=== PATIENT | female | born 2005 | race Caucasian/White ===

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

== ENCOUNTER 2024-03-28 12:43 | Observation (INO) | payer OTHER ==
--- NOTE | 2024-03-28 13:31 | ED ---
Nausea/Vomiting/Diarrhea HPI - General Source: patient, family, RN notes reviewed Mode of arrival: ambulatory Limitations: no limitations <Mahsa Valdez - Last Filed: 03/28/24 13:29> <Tono Raza - Last Filed: 03/28/24 19:33> - General Chief complaint: Nausea/Vomiting/Diarrhea Stated complaint: N/V/D Time Seen by Provider: 03/28/24 13:00 - History of Present Illness Initial comments: Clifford hollingsworth is a 18-year-old female presenting to the emergency department from urgent care with her mother for complaint of nausea, abdominal pain, diarrhea over the past day. Patient states that she is originally constipated now is having diarrhea and nausea. Denies previous surgical abdominal history. Denies fevers, chills, urinary complaints (Mahsa Valdez) Dictation was produced using [employer] dictation software. please excuse any grammatical, word or spelling errors. Chief Complaint: 18-year-old female with nausea, vomiting abdominal pain and diarrhea x 1 day History of Present Illness: 18-year-old female with no significant comorbidities presents emergency department with 1 day of abdominal pain, nausea vomiting and diarrhea. States that her diarrhea appeared to be bloody. She states that she also had nonbilious nonbloody emesis. Denies any fevers chills or night sweats. She complains of lower abdominal pain. Denies any surgical abdominal history. Denies any recent travel. Denies any fecal oral contact. Denies any consumption of suspect foods. The ROS documented in this emergency department record has been reviewed and confirmed by me. Those systems with pertinent positive or negative responses have been documented in the HPI. All other systems are other negative and/or noncontributory. (Tono Raza) - Related Data Home Medications Medication Instructions Recorded Confirmed Cetirizine HCl [Zyrtec] 10 mg PO HS 03/28/24 03/28/24 FLUoxetine HCL [Sarafem] 30 mg PO HS 03/28/24 03/28/24 Allergies Allergy/AdvReac Type Severity Reaction Status Date / Time sulfamethoxazole Allergy Rash/Hives Verified 03/28/24 19:01 [From ] trimethoprim [From ] Allergy Rash/Hives Verified 03/28/24 19:01 Review of Systems ROS Other: All systems not noted in ROS Statement are negative. <Mahsa Valdez - Last Filed: 03/28/24 13:29> ROS Other: All systems not noted in ROS Statement are negative. <Tono Raza - Last Filed: 03/28/24 19:33> ROS Statement: Those systems with pertinent positive or pertinent negative responses have been documented in the HPI. Past Medical History Past Medical History: No Reported History History of Any Multi-Drug Resistant Organisms: None Reported Past Surgical History: No Surgical Hx Reported Past Psychological History: No Psychological Hx Reported Smoking Status: Current every day smoker Past Alcohol Use History: Occasional Past Drug Use History: Marijuana <Mahsa Valdez - Last Filed: 03/28/24 13:29> General Exam Limitations: no limitations <Mahsa Valdez - Last Filed: 03/28/24 13:29> <Tono Raza - Last Filed: 03/28/24 19:33> - General Exam Comments Initial Comments: Visual Physical Exam Vital signs reviewed General: Well-appearing, nontoxic, no acute distress. Head: Normocephalic, atraumatic Eyes: PERRLA, EOMI ENT: Airway patent Chest: Nonlabored breathing Skin: No visual rash, normal skin tone Neuro: Alert and oriented 3 Musculoskeletal: No gross abnormalities (Mahsa Valdez) PHYSICAL EXAM: General Impression: Alert and oriented x3, not in acute distress HEENT: Normocephalic atraumatic, extra-ocular movements intact, pupils equal and reactive to light bilaterally, mucous membranes moist. Cardiovascular: Heart regular rate and rhythm Chest: Able to complete full sentences, no retractions, no tachypnea Abdomen: abdomen soft, diffuse palpatory tenderness worse in the lower abdomen non-distended, no organomegaly Musculoskeletal: Pulses present and equal in all extremities, no peripheral edema Motor: no focal deficits noted Neurological: CN II-XII grossly intact, no focal motor or sensory deficits noted Skin: Intact with no visualized rashes Psych: Normal affect and mood (Tono Raza) Course Vital Signs 03/28/24 03/28/24 12:45 15:42 Temperature 98.1 F Pulse Rate 78 55 L Respiratory 20 19 Rate Blood Pressure 125/77 109/68 O2 Sat by Pulse 97 100 Oximetry Medical Decision Making <Mahsa Valdez - Last Filed: 03/28/24 13:29> - Lab Data Result diagrams: 03/28/24 13:45 03/28/24 13:45 <Tono Raza - Last Filed: 03/28/24 19:33> - Medical Decision Making I completed the quick note portion of this chart signed Mahsa Valdez PA-C (Mahsa Valdez) Was pt. sent in by a medical professional or institution ([facility], RELAY DISPATCHER, urgent care, hospital, or group home...) When possible be specific @ -No Did you speak to anyone other than the patient for history (EMS, parent, family, police, friend...)? What history was obtained from this source @ -No Did you review nursing and triage notes (agree or disagree)? Why? @ -I reviewed and agree with nursing and triage notes Were old charts reviewed (outside hosp., previous admission, EMS record, old EKG, old radiological studies, urgent care reports/EKG's, group home records)? Report findings @ -No old charts were reviewed Differential Diagnosis (chest pain, altered mental status, abdominal pain women, abdominal pain men, vaginal bleeding, musculoskeletal, weakness, fever, dyspnea, syncope, headache, dizziness, GI bleed, back pain, seizure, CVA, palpatations, mental health)? @ -Differential Abdominal Pain Men: Appendicitis, cholecystitis, diverticulosis, ischemic bowel, pancreatitis, hepatitis, UTI, gastroenteritis, AAA, incarcerated hernia, bowel obstruction, constipation, inflammatory bowel, hepatitis, peptic ulcer disease, splenic infarction, perforated viscus, testicular torsion, this is not meant to be an all-inclusive list EKG interpreted by me (3pts min.). @ -None done X-rays interpreted by me (1pt min.). @ -None done CT interpreted by me (1pt min.). @ -CT of the abdomen and pelvis shows colitis U/S interpreted by me (1pt. min.). @ -None done What testing was considered but not performed or refused? (CT, X-rays, U/S, labs)? Why? @ -None What meds were considered but not given or refused? Why? @ -None Was smoking cessation discussed for >3mins.? @ -No Were there social determinants of health that impacted care today? How? (Homelessness, low income, unemployed, alcoholism, drug addiction, transportation, low edu. Level, literacy, decrease access to med. care, long-term, rehab)? @ -No Was there de-escalation of care discussed even if they declined (Discuss DNR or withdrawal of care, Hospice)? DNR status @ -No What co-morbidities impacted this encounter? (DM, HTN, Smoking, COPD, CAD, Cancer, CVA, ARF, Chemo, Hep., AIDS, mental health diagnosis, sleep apnea, morbid obesity)? @ -None Was patient admitted / discharged? Hospital course, mention meds given and route, prescriptions, significant lab abnormalities, going to OR and other pertinent info. @ -18-year-old female with severe colitis. Vital signs upon arrival are within acceptable limits. Laboratory evaluation shows leukocytosis 19.5. Rest of labs within acceptable limits. Urinalysis shows unclean specimen pending cultures. CT shows colitis. Patient reevaluated bedside 7:32 PM still significantly ill- appearing. Patient given fluids antibiotics. Will be admitted to the hospital for symptomatic treatment. Did you discuss the management of the patient with other professionals (professionals i.e. , PA, RELAY DISPATCHER, lab, RT, psych nurse, rn social services, internetworking technician, teacher, chief fundraising officer, showcase maker)? Give summary @ -Case discussed with hospitalist for admission Was critical care preformed (if so, how long)? @ -No Undiagnosed new problem with uncertain prognosis? @ -No Drug Therapy requiring intensive monitoring for toxicity (Heparin, Nitro, Insulin, Cardizem)? @ -No Were any procedures done? @ -No Diagnosis/symptom? Acute, or Chronic, or Acute on Chronic? Uncomplicated (without systemic symptoms) or Complicated (systemic symptoms)? @ -Colitis Side effects of treatment? @ -No Exacerbation, Progression, or Severe Exacerbation? @ -No Poses a threat to life or bodily function? How? (Chest pain, USA, MA, pneumonia, PE, COPD, DKA, ARF, appy, cholecystitis, CVA, Diverticulitis, Homicidal, Suicidal, threat to staff... and all critical care pts) @ -yes (Tono Raza) - Lab Data Lab Results 01/28/25 01/28/25 01/28/25 Range/Units 13:45 13:45 14:17 WBC 19.5 H (4.0-11.0) k/uL RBC 5.02 (3.80-5.40) m/uL Hgb 14.8 (11.4-16.0) gm/dL Hct 45.5 (34.0-46.0) % MCV 90.7 (80.0-100.0) fL MCH 29.5 (25.0-35.0) pg MCHC 32.5 (31.0-37.0) g/dL RDW 12.0 (11.5-15.5) % Plt Count 243 (150-450) k/uL MPV 9.1 Neutrophils % 91 % Lymphocytes % 5 % Monocytes % 3 % Eosinophils % 1 % Basophils % 0 % Neutrophils # 17.8 H (1.3-7.7) k/uL Lymphocytes # 0.9 L (1.0-4.8) k/uL Monocytes # 0.5 (0-1.0) k/uL Eosinophils # 0.2 (0-0.7) k/uL Basophils # 0.0 (0-0.2) k/uL Sodium 139 (137-145) mmol/L Potassium 4.7 (3.5-5.1) mmol/L Chloride 100 (98-107) mmol/L Carbon Dioxide 29 (22-30) mmol/L Anion Gap 10 mmol/L BUN 12 (7-17) mg/dL Creatinine 0.56 (0.52-1.04) mg/dL Est GFR (CKD-EPI)AfAm >90 (>60 ml/min/1.73 sqM) Est GFR (CKD-EPI)NonAf >90 (>60 ml/min/1.73 sqM) Glucose 122 H (74-99) mg/dL Calcium 9.9 (8.4-10.2) mg/dL Total Bilirubin 0.7 (0.2-1.3) mg/dL AST 25 (14-36) U/L ALT 16 (4-34) U/L Alkaline Phosphatase 73 (38-126) U/L Total Protein 8.2 (6.3-8.2) g/dL Albumin 4.8 (3.5-5.0) g/dL Amylase 59 (30-110) U/L Lipase 37 (23-300) U/L Urine Color Yellow Urine Appearance Cloudy H (Clear) Urine pH 6.5 (5.0-8.0) Ur Specific Norman 1.030 (1.001-1.035) Urine Protein 1+ H (Negative) Urine Glucose (UA) Negative (Negative) Urine Ketones 1+ H (Negative) Urine Blood Small H (Negative) Urine Nitrite Negative (Negative) Urine Bilirubin Negative (Negative) Urine Urobilinogen <2.0 (<2.0) mg/dL Ur Leukocyte Esterase Moderate H (Negative) Urine RBC 10 H (0-5) /hpf Urine WBC 37 H (0-5) /hpf Ur Squamous Epith Cells 20 H (0-4) /hpf Urine Mucus Many H (None) /hpf Urine HCG, Qual (Not Detectd) 03/28/24 Range/Units 14:17 WBC (4.0-11.0) k/uL RBC (3.80-5.40) m/uL Hgb (11.4-16.0) gm/dL Hct (34.0-46.0) % MCV (80.0-100.0) fL MCH (25.0-35.0) pg MCHC (31.0-37.0) g/dL RDW (11.5-15.5) % Plt Count (150-450) k/uL MPV Neutrophils % % Lymphocytes % % Monocytes % % Eosinophils % % Basophils % % Neutrophils # (1.3-7.7) k/uL Lymphocytes # (1.0-4.8) k/uL Monocytes # (0-1.0) k/uL Eosinophils # (0-0.7) k/uL Basophils # (0-0.2) k/uL Sodium (137-145) mmol/L Potassium (3.5-5.1) mmol/L Chloride (98-107) mmol/L Carbon Dioxide (22-30) mmol/L Anion Gap mmol/L BUN (7-17) mg/dL Creatinine (0.52-1.04) mg/dL Est GFR (CKD-EPI)AfAm (>60 ml/min/1.73 sqM) Est GFR (CKD-EPI)NonAf (>60 ml/min/1.73 sqM) Glucose (74-99) mg/dL Calcium (8.4-10.2) mg/dL Total Bilirubin (0.2-1.3) mg/dL AST (14-36) U/L ALT (4-34) U/L Alkaline Phosphatase (38-126) U/L Total Protein (6.3-8.2) g/dL Albumin (3.5-5.0) g/dL Amylase (30-110) U/L Lipase (23-300) U/L Urine Color Urine Appearance (Clear) Urine pH (5.0-8.0) Ur Specific Norman (1.001-1.035) Urine Protein (Negative) Urine Glucose (UA) (Negative) Urine Ketones (Negative) Urine Blood (Negative) Urine Nitrite (Negative) Urine Bilirubin (Negative) Urine Urobilinogen (<2.0) mg/dL Ur Leukocyte Esterase (Negative) Urine RBC (0-5) /hpf Urine WBC (0-5) /hpf Ur Squamous Epith Cells (0-4) /hpf Urine Mucus (None) /hpf Urine HCG, Qual Not Detected (Not Detectd) Disposition <Mahsa Valdez - Last Filed: 03/28/24 13:29> Decision Time: 19:33 <Tono Raza - Last Filed: 03/28/24 19:33> Clinical Impression: Colitis Disposition: ADMITTED IP TO THIS [facility] Condition: Fair Referrals: Mikey Singh MD [Primary Care Provider] - 1-2 days
[2024-03-28 13:49] LABS: Basophils % (A) 0 %; Eosinophils # (A) 0.2 k/uL (0-0.7); Eosinophils % (A) 1 %; HCT 45.5 % (34.0-46.0); HGB 14.8 gm/dL (11.4-16.0); Lymphocytes # (A) 0.9 k/uL (1.0-4.8); Lymphocytes % (A) 5 %; MCH 29.5 pg (25.0-35.0); MCHC 32.5 g/dL (31.0-37.0); MCV 90.7 fL (80.0-100.0); Mean Platelet Volume 9.1; Monocytes # (A) 0.5 k/uL (0-1.0); Monocytes % (A) 3 %; Neutrophils # (A) 17.8 k/uL (1.3-7.7); Neutrophils % (A) 91 %; Platelet Count 243 k/uL (150-450); RBC 5.02 m/uL (3.80-5.40); WBC 19.5 k/uL (4.0-11.0)
[2024-03-28 14:06] LABS: ALT 16 U/L (4-34); AST 25 U/L (14-36); African American GFR (CKD) >90 (>60 ml/min/1.73 sqM); Albumin 4.8 g/dL (3.5-5.0); Alkaline Phosphatase 73 U/L (38-126); Amylase 59 U/L (30-110); Anion Gap 10 mmol/L; Blood Urea Nitrogen 12 mg/dL (7-17); Calcium 9.9 mg/dL (8.4-10.2); Carbon Dioxide 29 mmol/L (22-30); Chloride 100 mmol/L (98-107); Glucose 122 mg/dL (74-99); Lipase 37 U/L (23-300); Non-African American GFR(CKD) >90 (>60 ml/min/1.73 sqM); Potassium 4.7 mmol/L (3.5-5.1); Sodium 139 mmol/L (137-145); Total Bilirubin 0.7 mg/dL (0.2-1.3); Total Protein 8.2 g/dL (6.3-8.2)
[2024-03-28 14:44] LABS: Appearance,Urine Cloudy (Clear); Bilirubin,Urine Negative (Negative); Blood,Urine Small (Negative); Color,Urine Yellow; Glucose,Urine (UA) Negative (Negative); Ketones,Urine 1+ (Negative); Leukocyte Esterase,Urine Moderate (Negative); Mucus,Urine Many /hpf; Nitrite,Urine Negative (Negative); PH, Urine 6.5 (5.0-8.0); Protein,Urine 1+ (Negative); RBC,Urine 10 /hpf (0-5); Squamous Epithelial Cell,Urine 20 /hpf (0-4); Urobilinogen,Urine <2.0 mg/dL (<2.0); WBC,Urine 37 /hpf (0-5)
[2024-03-28] MEDS: ONDANSETRON 4 MG/2 ML VIAL IVP STA (15:38)
[2024-03-28] MEDS: MORPHINE SULFATE 4 MG/ML SYRINGE IVP PRN (15:51)
--- NOTE | 2024-03-28 18:20 | CT ---
EXAMINATION TYPE: CT abdomen pelvis w con DATE OF EXAM: 03/28/2024 5:39 PM COMPARISON: None. CLINICAL INDICATION: Female, 18 years old with history of abdominal pain, abdominal pain and constipa tion, pt states blood in stool TECHNIQUE: Axial images were obtained from above the diaphragm to the pubic rami in the axial plane a t 5 mm thick sections. Reconstructed images are reviewed on the computer in the coronal plane. CONTRAST: 80ml mL of Isovue 300. Study performed without Oral Contrast DLP: 545.6 mGycm, Automated exposure control for dose reduction was used. FINDINGS: Limited CT sections are obtained the lung bases. The lung bases are clear. CT ABDOMEN: Liver: Normal Spleen: Normal Pancreas: Normal Adrenal glands: The adrenal glands are normal. Gallbladder: Normal Kidneys: There is a horseshoe kidney.. No hydronephrosis is present. No cysts are present. Delayed images were obtained through the kidneys, which remain unremarkable. Aorta: Normal Inferior vena cava: Normal. CT PELVIS: There is some wall thickening of the distal transverse colon, splenic flexure, descending colon and s igmoid colon. Some mild colitis should be considered. No significant adjacent inflammatory changes ev ident. No obstruction is evident. No dilated bowel are evident. This study is without oral contrast l imiting pelvic evaluation. Appendix: Normal as visualized. Urinary bladder: Normal. Genitourinary structures: There is a 1.7 cm follicle left ovary. There is a 1.6 cm follicle on the r ight ovary. Uterus appears within normal limits. Osseous structures: No suspicious lytic or sclerotic lesions. IMPRESSION: 1. Colitis from the distal transverse colon to the rectosigmoid region. 2. Bilateral ovarian follicles. 3. Note is made of horseshoe kidney. [facility], Workstation: [facility], 03/28/2024 6:17 PM
[2024-03-28] MEDS ORDERED: NALOXONE 0.4 MG/ML 1 ML VIAL IV PRN (19:23)
[2024-03-28] MEDS: AZITHROMYCIN 500 MG in SODIUM CHLORIDE 0.9% 250 ML IVPB STA (19:31)
[2024-03-28] MEDS: SODIUM CHLORIDE 0.9% 1,000 ML IV STA (19:36)
[2024-03-28] MEDS: MORPHINE SULFATE 4 MG/ML SYRINGE IV PRN (19:45)
[2024-03-28] MEDS: ONDANSETRON 4 MG/2 ML VIAL IVP PRN (19:46)
--- NOTE | 2024-03-28 22:18 | P.HPIM ---
History of Present Illness H&P Date: 03/28/24 Patient is a 26-year-old female with history of migraine, anxiety, depression, presented to ER with episodes of bloody bowel movements. Patient reports that she has been experiencing diffuse abdominal pain (more left than right) associated with nausea, vomiting, tenesmus and 3-4 episodes of bloody bowel movements that started this morning. Patient reports eating salad yesterday evening after which she started to experience 4-6 episodes of loose nonbloody stools lasting throughout the night into the morning which eventually turned into bloody bowel movements. Her last episode of hematochezia was around 2 PM in the afternoon. Abdominal pain initially was diffuse stabbing-like (L>R), 9 out of 10, constant, nonradiating, worse with movement and better with rest. Currently, pain is 3 out of 10 after she receiving morphine in ED. However, she continues to feel nauseous. Patient reports no previous episodes of bloody bowel movements. She does admit to have history of intermittent constipation and diarrhea since childhood and thinks that she has IBS (not officially diagnosed). Patient lives with her foster parents and is unsure if her biological parents were ever diagnosed with inflammatory bowel disease. Denies any recent travel or sick contacts. Additionally patient is also complaining of mild headache on the left side associated with pain in the left eye which was started when she came into the ER. Patient stated that after she has got her pain medication in the ED her pain has subsided substantially. Patient has a history of migraine and usually take extra strength Tylenol which resolves the pain. Patient is sexually active was recently tested for sexually transmitted disease which was negative. Her last menstrual period was 2 weeks ago. Patient denies any acute changes in her vision, chest pain, shortness of breath, numbness or tingling in upper or lower extremities. Patient denies any urgency, frequency of urination, dysuria or hematuria. Laboratory data: WBC 19.5, hemoglobin 14.8, MCV 90.7, platelet count 243, sodium 139, potassium 4.7, chloride 100, bicarb 29, BUN 12, creatinine 0.56, glucose 122, AST 25, ALT 16, ALP 73, total bili 0.7, Images: CT abdomen pelvis showed colitis extending from the distal transverse colon to the rectosigmoid colon. Additionally bilateral ovarian follicles and horseshoe kidney. Vitals: Vitals on arrival 98.1 F, heart rate 78, respirate 20, blood pressure 125/77, oxygen saturation 97% on room air Review of systems: Pertinent positives and negatives as discussed in HPI, a complete review of systems was performed and all other systems are negative. Social history: Tobacco: Vaping x 2 months Alcohol: Occasionally Recreational drugs: None Travel: None Occupation: Works at [employer] Family History: States that her biological mother has history of bipolar disorder and depression Physical examination: Vital signs reviewed General: non toxic, mild distress, appears at stated age, normal weight Derm: no unusual rashes/lesions, warm Head: atraumatic, normocephalic, symmetric Eyes: EOMI, no lid lag, anicteric sclera, pupils equal round reactive to light ENT: Nose and ears atraumatic, nose piercing noted Neck: No cervical lymphadenopathy, trachea midline, supple Mouth: no lip lesion, mucus membranes moist Cardiovascular: S1S2 reg, no murmur, positive dorsalis pedis pulse bilateral, no edema Lungs: CTA bilateral, no rhonchi, no rales, no accessory muscle use Abdominal: soft, diffusely tender to touch more on the left upper and lower quadrant. No guarding noted. No rebound tenderness. Bowel sounds positive Ext: muscle strength 5 out of 5 in all 4 extremities grossly, no gross muscle atrophy, no contractures, Neuro: CN II-XI grossly intact, no gross focal neuro deficits Psych: Alert, oriented, appropriate affect Assessment/Plan: This is a Patient is a 26-year-old female with history of migraine, anxiety, depression, presented to ER with episodes of hematochezia. Case was discussed with the Emergency Room provider and decision was made to admit the patient for colitis # Colitis, most likely inflammatory Differential: Infectious (EHEC, Shigella, Salmonella) vs auto-immune (Ulcerative colitis), C. difficile, parasitic infx WBC 19.5 with neutrophil count of 17.8 CT abdomen pelvis showed colitis extending from the distal transverse colon to the rectosigmoid colon. Continue with IV normal saline at 130 cc/h Pain management with morphine 4 mg IV every 4 hours as needed and Tylenol 650 mg p.o. every 6 hours as needed Consult GI Patient may need colonoscopy for further testing if symptoms persist Order fecal calprotectin, ESR, CRP, fecal ova and parasites, fecal leukocytes, stool culture, vitamin B12, TSH Order C. difficile toxin testing Zofran 4 mg IVP every 8 hour as needed for nausea vomiting Continue clear liquid diet Continue monitor CBC and BMP Continue with Zithromax 500 mg IVPB qd x 3d #Hyperglycemia Glucose 122 Accu-Cheks and sliding scale insulin Check HbA1c Monitor for hypoglycemia #History of migraine Patient states that her headaches better since she came to the ER Continue with Tylenol 600 mg every 6 hour as needed Chronic condition: Depression/anxiety: Resume Laxacin 30 mg p.o. at bedtime DVT prophylaxis: Mechanical DVT prophylaxis with SCDs GI prophylaxis: None F: IV normal saline at 130 cc /h E: Replete as needed N: Clear liquid diet A: Patient ambulatory at baseline The patient is admitted with an anticipated less than than 2 midnight stay for evaluation of colitis, likely inflammatory CODE STATUS: Full code Discussed with: Patient Anticipated discharge place: Pending clinical course Dictation was produced using [employer] dictation software. Please excuse any grammatical, word or spelling errors. Past Medical History Past Medical History: No Reported History History of Any Multi-Drug Resistant Organisms: None Reported Past Surgical History: No Surgical Hx Reported Past Psychological History: No Psychological Hx Reported Smoking Status: Current every day smoker Past Alcohol Use History: Occasional Past Drug Use History: Marijuana - Past Family History Mother Additional Family Medical History / Comment(s): Anxiety, depression, bipolar disorder Father History Unknown: Yes Medications and Allergies Home Medications Medication Instructions Recorded Confirmed Type Cetirizine HCl [Zyrtec] 10 mg PO HS 03/28/24 03/28/24 History FLUoxetine HCL [Sarafem] 30 mg PO HS 03/28/24 03/28/24 History Allergies Allergy/AdvReac Type Severity Reaction Status Date / Time sulfamethoxazole Allergy Rash/Hives Verified 03/28/24 19:01 [From ] trimethoprim [From ] Allergy Rash/Hives Verified 03/28/24 19:01 Physical Exam Vitals: Vital Signs Temp Pulse Resp BP Pulse Ox 03/28/24 19:40 98.0 F 53 L 17 123/80 100 03/28/24 15:42 55 L 19 109/68 100 03/28/24 12:45 98.1 F 78 20 125/77 97 Intake and Output 03/28/24 03/28/24 03/28/24 06:59 14:59 22:59 Other: Weight 61.235 kg Results CBC & Chem 7: 03/28/24 13:45 03/28/24 13:45 Labs: Abnormal Lab Results - Last 24 Hours (Table) 03/28/24 03/28/24 03/28/24 Range/Units 13:45 13:45 14:17 WBC 19.5 H (4.0-11.0) k/uL Neutrophils # 17.8 H (1.3-7.7) k/uL Lymphocytes # 0.9 L (1.0-4.8) k/uL Glucose 122 H (74-99) mg/dL Urine Appearance Cloudy H (Clear) Urine Protein 1+ H (Negative) Urine Ketones 1+ H (Negative) Urine Blood Small H (Negative) Ur Leukocyte Esterase Moderate H (Negative) Urine RBC 10 H (0-5) /hpf Urine WBC 37 H (0-5) /hpf Ur Squamous Epith Cells 20 H (0-4) /hpf Urine Mucus Many H (None) /hpf
[2024-03-28 22:42] LABS: C Reactive Protein 0.8 mg/dL (<1.0)
[2024-03-28] MEDS: LORATADINE 10 MG TAB PO SCH (22:50)
[2024-03-28] MEDS: ACETAMINOPHEN TAB 325 MG TAB PO PRN (22:50)
[2024-03-28] MEDS: FLUoxetine HCL 10 MG CAP PO SCH (22:52)
[2024-03-28] MEDS: SODIUM CHLORIDE 0.9% 1,000 ML IV SCH (22:55)
[2024-03-28 23:44] LABS: T4, Free (Free Thyroxine) 1.05 ng/dL (0.78-2.19)
[2024-03-29] MEDS: INSULIN ASPART (NovoLOG) 100 UNIT/ML VIAL SQ SCH ×2 (06:40→06:41)
[2024-03-29 07:53] LABS: Basophils % (A) 0 %; Eosinophils # (A) 0.1 k/uL (0-0.7); Eosinophils % (A) 1 %; HCT 39.9 % (34.0-46.0); HGB 12.9 gm/dL (11.4-16.0); Lymphocytes # (A) 2.5 k/uL (1.0-4.8); Lymphocytes % (A) 18 %; MCH 30.2 pg (25.0-35.0); MCHC 32.2 g/dL (31.0-37.0); MCV 93.8 fL (80.0-100.0); Mean Platelet Volume 9.6; Monocytes # (A) 0.8 k/uL (0-1.0); Monocytes % (A) 6 %; Neutrophils # (A) 10.4 k/uL (1.3-7.7); Neutrophils % (A) 74 %; Platelet Count 183 k/uL (150-450); RBC 4.26 m/uL (3.80-5.40); RDW 12.1 % (11.5-15.5); WBC 14.1 k/uL (4.0-11.0)
[2024-03-29 08:34] LABS: African American GFR (CKD) >90 (>60 ml/min/1.73 sqM); Anion Gap 4 mmol/L; Blood Urea Nitrogen 7 mg/dL (7-17); Calcium 8.7 mg/dL (8.4-10.2); Carbon Dioxide 31 mmol/L (22-30); Chloride 104 mmol/L (98-107); Glucose 84 mg/dL (74-99); Non-African American GFR(CKD) >90 (>60 ml/min/1.73 sqM); Potassium 4.3 mmol/L (3.5-5.1); Sodium 139 mmol/L (137-145)
[2024-03-29] MEDS: AZITHROMYCIN 500 MG TAB PO SCH (09:38)
--- NOTE | 2024-03-29 10:43 | P.PN ---
Subjective Progress Note Date: 03/29/24 Subjective: [Hospital course: Patient is a 26-year-old female with history of migraine, anxiety, depression, presented to ER with episodes of bloody bowel movements. Patient reports that she has been experiencing diffuse abdominal pain (more left than right) associated with nausea, vomiting, tenesmus and 3-4 episodes of bloody bowel movements that started this morning. Patient reports eating salad yesterday evening after which she started to experience 4-6 episodes of loose nonbloody stools lasting throughout the night into the morning which eventually turned into bloody bowel movements. Her last episode of hematochezia was around 2 PM in the afternoon. Abdominal pain initially was diffuse stabbing-like (L>R), 9 out of 10, constant, nonradiating, worse with movement and better with rest. Currently, pain is 3 out of 10 after she receiving morphine in ED. However, she continues to feel nauseous. Patient reports no previous episodes of bloody bowel movements. She does admit to have history of intermittent constipation and diarrhea since childhood and thinks that she has IBS (not officially diagnosed). Patient lives with her foster parents and is unsure if her biological parents were ever diagnosed with inflammatory bowel disease. Denies any recent travel or sick contacts. Additionally patient is also complaining of mild headache on the left side assoc iated with pain in the left eye which was started when she came into the ER. Patient stated that after she has got her pain medication in the ED her pain has subsided substantially. Patient has a history of migraine and usually take extra strength Tylenol which resolves the pain. Patient is sexually active was recently tested for sexually transmitted disease which was negative. Her last menstrual period was 2 weeks ago. Patient denies any acute changes in her vision, chest pain, shortness of breath, numbness or tingling in upper or lower extremities. Patient denies any urgency, frequency of urination, dysuria or hematuria. Laboratory data: WBC 19.5, hemoglobin 14.8, MCV 90.7, platelet count 243, sodium 139, potassium 4.7, chloride 100, bicarb 29, BUN 12, creatinine 0.56, glucose 122, AST 25, ALT 16, ALP 73, total bili 0.7, Images: CT abdomen pelvis showed colitis extending from the distal transverse colon to the rectosigmoid colon. Additionally bilateral ovarian follicles and horseshoe kidney. Vitals: Vitals on arrival 98.1 F, heart rate 78, respirate 20, blood pressure 125/77, oxygen saturation 97% on room air Subjective: Patient seen and examined at bedside. Reports of vomiting this morning at 7:30 AM. Denies any blood in the vomit. States abdominal pain has slightly improved. Denies any dysuria or urinary frequency. Pertinent positives and negatives as discussed above, a complete review of systems was performed and all other systems are negative. Vitals: Signs Reviewed Physical Exam: General: nontoxic, no distress, appears at stated age Derm: warm, dry, intact Head: atraumatic, normocephalic, symmetric Eyes: EOMI, anicteric sclera Mouth: no lip lesion, mucus membranes moist Cardiovascular: S1 S2 reg, no murmur, rubs, or gallops Lungs: CTA bilateral, no rhonchi, no rales, no accessory muscle use Abdominal: soft, diffusely tender to palpation more on the left upper and lower quadrant, no appreciable organomegaly Extremities: no gross muscle atrophy, no edema, no contractures Neuro: Alert, Oriented, CNII-XII grossly intact, gait normal Psych: well appearing, appropriate affect Data Received Today: Pertinent Labs: CRP 0.8 WBC 14.1, Hgb 12.9, BUN 7, creatinine 0.62, TSH 0.350, free T 41.05 Imaging: N/A Assessment and Plan: # Colitis, most likely inflammatory Differential: Infectious (EHEC, Shigella, Salmonella) vs auto-immune (IBD), C. difficile, parasitic infx CRP within normal limits at 0.8, TSH 0.35, free T4 1.0 CT abdomen pelvis showed colitis extending from the distal transverse colon to the rectosigmoid colon. Continue with IV normal saline at 130 cc/h Pain management with morphine 4 mg IV every 4 hours as needed and Tylenol 650 mg p.o. every 6 hours as needed Patient may need colonoscopy for further testing if symptoms persist fecal calprotectin, ESR, fecal ova and parasites, fecal leukocytes, stool culture, vitamin B12 pending C. difficile toxin pending Zofran 4 mg IVP every 8 hour as needed for nausea vomiting Continue monitor CBC and BMP Continue with empiric Zithromax 500 mg IVPB qd x 3d (day 2) Consult GI pending recommendations #. Asymptomatic bacteriuria, likely contaminant UA Patient denies any dysuria or urinary frequency/urgency UA likely contaminated due to high squamous epithelial cell, showing small blood in urine, moderate leukocyte esterase, urine WBC 37 #. Subclinical hyperthyroidism TSH 0.35, free T4 1.0 #History of migraine Patient states that her headaches better since she came to the ER Continue with Tylenol 600 mg every 6 hour as needed Chronic condition: Depression/anxiety: Resume Laxacin 30 mg p.o. at bedtime DVT prophylaxis: Mechanical DVT prophylaxis with SCDs GI prophylaxis: None F: IV normal saline at 130 cc /h E: Replete as needed N: Regular diet A: Patient ambulatory at baseline Code status: Full code Anticipated discharge place: Home Anticipated discharge time: Within 24-48 hours Priya Peñaloza MD PGY-1 IM Dictation was produced using [employer] dictation software. please excuse any grammatical, word or spelling errors. I saw and evaluated the patient during the heller and critical portions of this encounter, and discussed the case in detail with the resident author of this note, I agree with the Assessment and Plan, and my changes, if any, are highlighted below. Slightly improved symptoms. CBC and BMP significant for WBC 14.1, bicarb 31. Stop Azithromycin and start Levaquin and Flagyl. GI is not available this week. Will need outpatient GI evaluation. Objective - Vital Signs Vital signs: Vital Signs Temp 96.1 F L 03/29/24 07:50 Pulse 86 03/29/24 07:50 Resp 17 03/29/24 07:50 BP 118/78 03/29/24 07:50 Pulse Ox 97 03/29/24 07:50 FiO2 Intake & Output 03/28/24 03/29/24 03/29/24 18:59 06:59 18:59 Intake Total 1550 Balance 1550 Weight 61.235 kg 61.235 kg Intake: Intake, IV Titration 1550 Amount Azithromycin 500 mg In 250 Sodium Chloride 0.9% 250 ml @ 250 mls/hr IVPB ONCE STA Rx#:[id number] Sodium Chloride 0.9% 1, 1300 000 ml @ 130 mls/hr IV . [id number] [facility] Rx#:[id number] Other: Voiding Method Toilet Toilet # Voids 2 - Labs CBC & Chem 7: 03/29/24 07:14 03/29/24 07:14 Labs: Abnormal Lab Results - Last 24 Hours (Table) 03/28/24 03/28/24 03/28/24 Range/Units 13:45 13:45 13:45 WBC 19.5 H (4.0-11.0) k/uL Neutrophils # 17.8 H (1.3-7.7) k/uL Lymphocytes # 0.9 L (1.0-4.8) k/uL Carbon Dioxide (22-30) mmol/L Glucose 122 H (74-99) mg/dL TSH 0.350 L (0.465-4.680) mIU/L Urine Appearance (Clear) Urine Protein (Negative) Urine Ketones (Negative) Urine Blood (Negative) Ur Leukocyte Esterase (Negative) Urine RBC (0-5) /hpf Urine WBC (0-5) /hpf Ur Squamous Epith Cells (0-4) /hpf Urine Mucus (None) /hpf 03/28/24 03/29/24 03/29/24 Range/Units 14:17 07:14 07:14 WBC 14.1 H (4.0-11.0) k/uL Neutrophils # 10.4 H (1.3-7.7) k/uL Lymphocytes # (1.0-4.8) k/uL Carbon Dioxide 31 H (22-30) mmol/L Glucose (74-99) mg/dL TSH (0.465-4.680) mIU/L Urine Appearance Cloudy H (Clear) Urine Protein 1+ H (Negative) Urine Ketones 1+ H (Negative) Urine Blood Small H (Negative) Ur Leukocyte Esterase Moderate H (Negative) Urine RBC 10 H (0-5) /hpf Urine WBC 37 H (0-5) /hpf Ur Squamous Epith Cells 20 H (0-4) /hpf Urine Mucus Many H (None) /hpf
[2024-03-29] MEDS: KETOROLAC 15 MG/ML 1 ML VIAL IVP STA (16:52)
[2024-03-29] MEDS: metroNIDAZOLE-NS PMX 500 MG in SALINE 1 100ML.BAG IVPB SCH (16:58)
[2024-03-29] MEDS: LEVOFLOXACIN 500MG-D5W PMX 500 MG in DEXTROSE/WATER 1 100ML.BAG IVPB SCH (18:04)
[2024-03-30 08:09] VITALS: RESP 18
[2024-03-30 09:11] LABS: HCT 35.3 % (34.0-46.0); HGB 11.3 gm/dL (11.4-16.0); MCH 29.8 pg (25.0-35.0); MCHC 32.1 g/dL (31.0-37.0); MCV 92.8 fL (80.0-100.0); Mean Platelet Volume 9.4; Platelet Count 143 k/uL (150-450); WBC 7.8 k/uL (4.0-11.0)
[2024-03-30 09:34] LABS: African American GFR (CKD) >90 (>60 ml/min/1.73 sqM); Anion Gap 3 mmol/L; Blood Urea Nitrogen 2 mg/dL (7-17); Calcium 8.8 mg/dL (8.4-10.2); Carbon Dioxide 30 mmol/L (22-30); Chloride 107 mmol/L (98-107); Glucose 76 mg/dL (74-99); Non-African American GFR(CKD) >90 (>60 ml/min/1.73 sqM); Potassium 3.9 mmol/L (3.5-5.1); Sodium 140 mmol/L (137-145)
[2024-03-30 11:59] VITALS: BMI 23.9
[2024-03-30] MEDS: SIMETHICONE 80 MG CHEWABLE PO STA (12:00)
[2024-03-30] MEDS: KETOROLAC 15 MG/ML 1 ML VIAL IVP PRN (12:05)
[2024-03-30 14:15] VITALS: BP 99/61; PULSE 63; TEMP 97.5
--- NOTE | 2024-03-30 14:21 | P.DS ---
Providers Date of admission: 03/28/24 19:23 Discharge Diagnosis: Colitis Asymptomatic bacteriuria Subclinical hypothyroidism History of migraine Hospital course: Patient is a 26-year-old female with history of migraine, anxiety, depression, presented to ER with episodes of bloody bowel movements. Patient reports that she has been experiencing diffuse abdominal pain (more left than right) associated with nausea, vomiting, tenesmus and 3-4 episodes of bloody bowel movements that started this morning. Patient reports eating salad yesterday evening after which she started to experience 4-6 episodes of loose nonbloody stools lasting throughout the night into the morning which eventually turned into bloody bowel movements. Her last episode of hematochezia was around 2 PM in the afternoon. Abdominal pain initially was diffuse stabbing-like (L>R), 9 out of 10, constant, nonradiating, worse with movement and better with rest. Currently, pain is 3 out of 10 after she receiving morphine in ED. However, she continues to feel nauseous. Patient reports no previous episodes of bloody b owel movements. She does admit to have history of intermittent constipation and diarrhea since childhood and thinks that she has IBS (not officially diagnosed). Patient lives with her foster parents and is unsure if her biological parents were ever diagnosed with inflammatory bowel disease. Denies any recent travel or sick contacts. Additionally patient is also complaining of mild headache on the left side associated with pain in the left eye which was started when she came into the ER. Patient stated that after she has got her pain medication in the ED her pain has subsided substantially. Patient has a history of migraine and usually take extra strength Tylenol which resolves the pain. Patient is sexually active was recently tested for sexually transmitted disease which was negative. Her last menstrual period was 2 weeks ago. Patient denies any acute changes in her vision, chest pain, shortness of breath, numbness or tingling in upper or lower extremities. Patient denies any urgency, frequency of urination, dysuria or hematuria. Laboratory data: WBC 19.5, hemoglobin 14.8, MCV 90.7, platelet count 243, sodium 139, potassium 4.7, chloride 100, bicarb 29, BUN 12, creatinine 0.56, glucose 122, AST 25, ALT 16, ALP 73, total bili 0.7, Images: CT abdomen pelvis showed colitis extending from the distal transverse colon to the rectosigmoid colon. Additionally bilateral ovarian follicles and horseshoe kidney. Vitals: Vitals on arrival 98.1 F, HR 78, RR 20, BP 125/77, oxygen saturation 97% on room air Patient was placed on fluids and given antibiotics. Labs for infectious etiology versus autoimmune etiology versus C. difficile workup were ordered, however she did not have any bowel movement while she was here. Workup for IBD was done as well. She states she regularly has a bowel movement twice a week. Blood levels were stable. BMP is unremarkable. Abdominal pain has resolved. She is being discharged home with oral antibiotics. She will follow-up with her PCP and gastroenterology for further assessment bloody bowel movement. She is being discharged home. Vital signs reviewed and stable. Physical examination: Vital signs reviewed General: non toxic, no distress, appears at stated age, normal weight Derm: no unusual rashes/lesions, warm Head: atraumatic, normocephalic, symmetric Eyes: EOMI, anicteric sclera, pupils equal round reactive to light ENT: Nose and ears atraumatic Neck: No cervical lymphadenopathy, trachea midline, supple Mouth: no lip lesion, mucus membranes moist Cardiovascular: S1S2 reg, no murmur, positive dorsalis pedis pulse bilateral, no edema Lungs: CTA bilateral, no rhonchi, no rales, no accessory muscle use Abdominal: soft, nontender to palpation, no guarding Ext: muscle strength 5 out of 5 in all 4 extremities grossly, no gross muscle atrophy Neuro: CN II-XI grossly intact, no gross focal neuro deficits Psych: Alert, oriented to person, place, and time A total of greater than 30 minutes of time were spent preparing this complex discharge summary. Patient was discharge on March 30, 2024. Priya Peñaloza MD PGY-1 IM Dictation was produced using [employer] dictation software. please excuse any gramma tical, word or spelling errors. I saw and evaluated the patient during the heller and critical portions of this encounter, and discussed the case in detail with the resident author of this note, I agree with the Assessment and Plan, and my changes, if any, are highlighted below. Feeling better. No bowel movements while here. No nausea or vomiting. Tolerating diet well. CBC and BMP shows Hg 11.3, Plt 143, BUN 2. Abdomen is soft with mild tenderness to palpation in the LLQ without rebound. No masses appreciated. Positive bowel sounds. Plans for discharge home with Flagyl and Levaquin x 6 days (total 7 days). Follow up with Dr. Laurent within 1 week of discharge. She will need a C-scope for further evaluation after resolution of her colitis. Expected date of discharge: 03/30/24 Attending physician: Joy Long MD Consults: 03/28/24 23:28 Consult Physician Urgent Consulting Provider: Juany Laurent Consult Reason/Comments: colitis Do you want consulting provider notified?: Yes Primary care physician: Jesse Singh Patient Condition at Discharge: Fair Plan - Discharge Summary Discharge Rx Participant: No New Discharge Prescriptions: New metroNIDAZOLE [Flagyl] 500 mg PO TID 6 Days #18 tab Levofloxacin [Levaquin] 500 mg PO DAILY 6 Days #6 tab Continue Cetirizine HCl [Zyrtec] 10 mg PO HS FLUoxetine HCL [Sarafem] 30 mg PO HS Discharge Medication List Cetirizine HCl [Zyrtec] 10 mg PO HS 03/28/24 [History] FLUoxetine HCL [Sarafem] 30 mg PO HS 03/28/24 [History] Levofloxacin [Levaquin] 500 mg PO DAILY 6 Days #6 tab 03/30/24 [Rx] metroNIDAZOLE [Flagyl] 500 mg PO TID 6 Days #18 tab 03/30/24 [Rx] Follow up Appointment(s)/Referral(s): Mikey Singh MD [Primary Care Provider] - 04/06/24 2:00 pm Juany Laurent MD [STAFF PHYSICIAN] - 1 Week (Please call and schedule follow-up appointment) Patient Instructions/Handouts: Colitis (ED) Activity/Diet/Wound Care/Special Instructions: Please see PCP and gastroenterology. Discharge Disposition: HOME SELF-CARE
== END 2024-03-30 15:03 | disposition home or self-care (01) ==
LOC: EC 12:43 → 6NMEDSUR 19:23 → 1SOBS 21:14
PROVIDERS: ADMIT Internal Medicine; ATTEND Internal Medicine
DX: K52.9 Noninfective gastroenteritis and colitis, unspecified (principal); R73.9 Hyperglycemia, unspecified; E05.90 Thyrotoxicosis, unspecified without thyrotoxic crisis or storm; G43.909 Migraine, unspecified, not intractable, without status migrainosus; R82.71 Bacteriuria; E03.8 Other specified hypothyroidism; F32.A Depression, unspecified; F41.9 Anxiety disorder, unspecified; F17.290 Nicotine dependence, other tobacco product, uncomplicated; Z79.899 Other long term (current) drug therapy; Z88.2 Allergy status to sulfonamides
CPT/HCPCS: 96366 ×2; 96367; 96374; 96375 ×2; 96376 ×3; 96365; 99285; 36415; 84439; 80053; 80048 ×2; 85652; 84443; 82607; 82150; 83690; 85025 ×2; 85027; 86140; 81001; 81025; 74177; G0378 ×3; J2270 ×2; J2405 ×2; J1956; J0456; J1885 ×2; Q9967; J1836 ×2